=== PATIENT | male | born 1940 | race Caucasian/White ===

== ENCOUNTER 2017-09-14 13:47 | Emergency (ER) | payer OTHER ==
[~2017-09-14] VITALS: Ht 177.8 cm; Wt 136.1 kg
[2017-09-14] MEDS ORDERED: POTASSIUM20 PO (14:06)
[2017-09-14] MEDS ORDERED: SIMVASTATIN40 MG PO (14:06)
[2017-09-14] MEDS ORDERED: COREG25 MG PO (14:06)
[2017-09-14] MEDS ORDERED: ASPIRIN325 PO (14:07)
[2017-09-14] MEDS ORDERED: MOBIC15 MG PO (14:07)
[2017-09-14] MEDS ORDERED: LOSARTAN POTAS100 MG PO (14:07)
[2017-09-14] MEDS ORDERED: FLOMAX0.4 MG PO (14:07)
[2017-09-14] MEDS ORDERED: LASIX 40 MG TAB40 M2 PO (14:08)
[2017-09-14] MEDS ORDERED: PROSCAR 5MG TABL5 M1 PO (14:08)
[2017-09-14] MEDS ORDERED: LIDODERM1 EACH TOP (14:23)
[2017-09-14] MEDS ORDERED: HYDROCODONE-AP1 EAC6 PO (14:23)
[2017-09-14 14:56] VITALS: BP 109/71
== END 2017-09-14 14:57 | disposition home or self-care (01) ==
LOC: M.ERS 13:47
DX: G89.29 Other chronic pain (principal); M54.5 Low back pain; I10 Essential (primary) hypertension; E78.00 Pure hypercholesterolemia, unspecified; Z88.8 Allergy status to other drugs, medicaments and biological substances; Z98.890 Other specified postprocedural states

== ENCOUNTER 2017-12-01 15:38 | Inpatient (IN) | payer OTHER ==
[~2017-12-01] VITALS: Ht 177.8 cm; Wt 134.3 kg
[~2017-12-01 15:38] MED LIST: ASPIRIN325 PO; COREG25 MG PO; FLOMAX0.4 MG PO; HYDROCODONE-AP1 EAC6 PO; LASIX 40 MG TAB40 M2 PO; LIDODERM1 EACH TOP; LOSARTAN POTAS100 MG PO; MOBIC15 MG PO; POTASSIUM20 PO; PROSCAR 5MG TABL5 M1 PO; SIMVASTATIN40 MG PO
[2017-12-01 15:43] VITALS: BP 136/65
[2017-12-01 16:17] LABS: ABSOLUTE EOSINOPHILS 0.3 thou/uL (0.0-0.7); ABSOLUTE LYMPHOCYTES 1.2 thou/uL (0.8-5.3); ABSOLUTE MONOCYTES 0.6 thou/uL (0.0-1.2); ABSOLUTE NEUTROPHILS 5.4 thou/uL (1.6-8.1); BASOPHILS 0.5 %; EOSINOPHILS 3.6 %; HEMOGLOBIN 14.3 gm/dL (14.0-18.0); LYMPHOCYTES 15.8 %; MCV 93.9 fL (80.0-100.0); MONOCYTES 8.1 %; MPV 8.1 fl. (7.2-11.1); NUCLEATED RBCS 0 /100WBC; PLATELET COUNT* 189 thou/uL (150-400); RBC 4.48 mil/uL (4.50-6.00); RDW-CV 13.8 % (10.5-14.5); WBC 7.5 thou/uL (4.0-11.0)
[2017-12-01 16:26] LABS: APTT 26.4 Seconds (25.0-31.3); CALCIUM 9.4 mg/dL (8.5-10.1); CREATININE 1.1 mg/dL (0.6-1.3); INR 1.2; POTASSIUM 3.6 mmol/L (3.5-5.1); PROTIME 11.4 Seconds (9.20-11.50)
[2017-12-01 16:36] LABS: ALBUMIN 3.5 g/dL (3.4-5.0); TOTAL BILIRUBIN 1.2 mg/dL (<0.1-1.0); TOTAL PROTEIN 6.8 g/dL (6.4-8.2); TROPONIN-I LEVEL 0.15 ng/mL (<0.06)
[2017-12-01 18:03] VITALS: BP 146/78
[2017-12-01] MEDS ORDERED: LOSARTAN-HCTZ1 EAC1 PO (18:33)
--- NOTE | 2017-12-01 18:43 | NUR ---
PT ADMITTED TO ICU ROOM 1 AROUND 0 THIS EVENING. VSS. PT TOLERATING DIET AT THIS TIME. FAMILY AT BEDSIDE. PT HAS NO CONCERNS AT THIS TIME. CLWR. WCTM.
[2017-12-01 20:00] VITALS: BP 139/70
[2017-12-01 21:30] VITALS: BP 139/72
[2017-12-01 22:00] VITALS: BP 132/77
[2017-12-01 23:30] VITALS: BP 136/76
[2017-12-02] VITALS (25 sets, daily range): BP systolic 118–178; BP diastolic 57–95
--- NOTE | 2017-12-02 05:09 | NUR ---
PT. SOMEWHAT PROGRESSING TOWARDS GOALS. HAS REMAINED AFIB W/ BRADYCARDIA AND PAUSES. ASYMPTOMATIC. DR. COLE NOTIFIED X2 THIS SHIFT REGARDING HEART RATE DROPPING INTO HIGH 20'S AND FREQUENT PAUSES. NORMOTENSIVE. URINAL TO VOID. DENIES NEEDS AT THIS TIME, CALL LIGHT IN REACH. WILL CONTINUE TO MONITOR.
--- NOTE | 2017-12-02 08:20 | NUR ---
PT SEEN BY CARDIOLOGY NURSE, OKAY FOR SIPS OF WATER. WILL KEEP PT NPO OTHERWISE.DR CRESPO TO [facility] ON PT SHORTLY. FDR KATHRYNFRANCHESKA HAD PHONED ELLIS AND WAS UPDATED ON PT STATUS.PT DENIES ANY COMPLAINTS OF PAIN OR DISCOMFORT AT THIS TOIME. PT REMAINS IN A FIB WITH HEART RATE 40'S-60'S.DAUGHTER ON PHONE EARLIER UPDATED ON PT STATUS AND TRANSFERED CALL TO PT ROOM.
[2017-12-02 10:18] LABS: ANION GAP 8 mmol/L (7-16); BUN 18 mg/dL (7-18); CALCIUM 9.3 mg/dL (8.5-10.1); CHLORIDE 98 mmol/L (98-107); CHOLESTEROL 92 mg/dL (<200); CO2 35 mmol/L (21-32); GLUCOSE 105 mg/dL (70-99); HDL CHOLESTEROL 31 mg/dL (>40); LDL CHOLESTEROL 47 mg/dL (<100); POTASSIUM 3.8 mmol/L (3.5-5.1); SODIUM 141 mmol/L (136-145); TRIGLYCERIDE 72 mg/dL (<150); VLDL 14 mg/dL (<40)
[2017-12-02 10:19] LABS: SERUM ASSESSMENT Clear
--- NOTE | 2017-12-02 11:02 | EKG ---
[place] [address] ELECTROCARDIOGRAM REPORT Name: TOBIASNEW Room: [address] ADM IN .R.#: [id number] Admission: 12/01/17 Attend Phys: Aniyah Silvestre MD Discharge: Date of : 42 Report #: [id number] THIS REPORT FOR: //name// [facility] ED Test Date: 2017-12-01 Test Time: 15:46:08 Pat Name: NEW TOBIAS Department: Room: [facility] Gender: M Surgical Dental Assistant: Manuel AVITIA : 1940 Requested By: Sridhar Kelly Order Number: [id number] MD: Nolan Flores Measurements Intervals [place] Rate: 49 P: [place]: QRS: -70 QRSD: 107 T: 51 QT: 463 QTc: 418 Interpretive Statements Atrial fibrillation Consider right ventricular hypertrophy Inferior infarct, old Consider anterior infarct No previous ECG available for comparison Electronically Signed On 12-02-2017 11:02:07 CDT by Nolan Flores [email or web address] <ELECTRONICALLY SIGNED> By: Nolan Flores MD, [facility] 12/02/17 1102 1546 1546 Nolan Flores MD, [facility] /EPI
--- NOTE | 2017-12-02 11:35 | NUR ---
PT TAKEN TO HEALTH AND WELLNESS COACH FOR PROCEDURE.
--- NOTE | 2017-12-02 12:01 | NUR ---
ICU ROUNDING: CM SPOKE TO THE RN IN-CHARGE OF THE PATIENT AND HE INFORMS THAT THE PATIENT IS CURRENTLY NPO AND WILL GO TO THE HEALTH EDUCATION SPECIALIST TODAY FOR A PROCEDURE. CM WILL REMAIN AVAILABLE TO ASSIST AND FOLLOW NEEDED.
--- NOTE | 2017-12-02 13:53 | 2DMMODE ---
[place] [address] 2 D/M-MODE ECHOCARDIOGRAM Name: NEW TOBIAS Room: [address] IN [facility]#: [id number] Admission: 12/01/17 Attend Phys: Aniyah Silvestre, Discharge: Date of : 42 Date of Service: 12/02/17 1353 Report #: [id number] THIS REPORT FOR: //name// APPROVED REPORT Study performed: 12/02/2017 09:42:50 EXAM: Comprehensive 2D, Doppler, and color-flow Echocardiogram Patient Location: In-Patient Room #: 001 Status: routine BSA: 2.17 HR: 58 bpm BP: 140/74 mmHg Rhythm: NSR Other Information Study Quality: Good Indications Atrial Fibrillation Bradycardia 2D Dimensions LVEF(%): 51.70 (>50%) IVSd: 16.24 (7-11mm) LVOT Diam: 20.21 (18-24mm) LVDd: 47.12 mm PWd: 13.59 (7-11mm) Ascending Ao: 37.47 (22-36mm) LVDs: 34.67 (25-40mm) Aortic Root: 36.67 mm Marcus's LVEF: 51.70 % Volumes Left Atrial Volume (Systole) LA ESV Index: 36.00 mL/m2 Aortic Valve AoV Peak Piyush.: 1.41 m/s AO Peak Gr.: 7.90 mmHg LVOT Max P.43 mmHg AO Mean Gr.: 4.15 mmHg LVOT Mean P.51 mmHg LVOT Max V: 1.17 m/s AO V2 VTI: 26.82 cm LVOT Mean V: 0.71 m/s PRASAD (VTI): 3.32 cm2 LVOT V1 VTI: 27.79 cm AI [place]: 1.91 m/s2 AI PHT: 614.86 [place] [address] 2 D/M-MODE ECHOCARDIOGRAM Name: TOBIASNEW Room: [address] IN [facility]#: [id number] Admission: 12/01/17 Attend Phys: Aniyah Silvestre, Discharge: Date of : 42 Date of Service: 12/02/17 1353 Report #: [id number] Mitral Valve MV Decel. Time: 195.04 ms MV PHT: 56.56 ms MVA (PHT): 3.89 cm2 TDI Medial E' Piyush.: 0.09 m/s Lateral E' Piyush.: 0.11 m/s Pulmonary Valve PV Peak Piyush.: 0.76 m/s PV Peak Gr.: 2.32 mmHg Tricuspid Valve TR Peak Gr.: 33.56 mmHg RVSP: 38.00 mmHg Left Ventricle The left ventricle is normal size. inferior hypokinesis,mild , at the base other segments contract normally Mild to moderate concentric left ventricular hypertrophy. Left ventricular systolic function is normal. The left ventricular ejection fraction is within the normal range. LVEF is 55-60%. This study is not technically sufficient to allow evaluation of the LV diastolic function due to atrial fibrillation. Right Ventricle The right ventricle is normal size. The right ventricular systolic function is normal. Atria Left atrium is mildly dilated. Right atrium is mildly dilated. Aortic Valve The aortic valve is normal in structure. Mild aortic regurgitation. There is no aortic valvular stenosis. Mitral Valve The mitral valve is normal in structure. Mild mitral regurgitation. No evidence of mitral valve stenosis. Tricuspid Valve The tricuspid valve is normal in structure. Mild tricuspid regurgitation. The RVSP is 35-40 [place] [address] 2 D/M-MODE ECHOCARDIOGRAM Name: NEW TOBIAS Room: [address] IN [facility]#: [id number] Admission: 12/01/17 Attend Phys: Aniyah Silvestre, Discharge: Date of : 42 Date of Service: 12/02/17 1353 Report #: [id number] The pulmonary valve is normal in structure. There is no pulmonic valvular regurgitation. Great Vessels The aortic root is normal in size. The inferior vena cava is not well visualized. Pericardium There is no pericardial effusion. <Conclusion> LVEF is 55-60%. inferior hypokinesis,mild , at the base other segments contract normally Left atrium is mildly dilated. Mild aortic regurgitation. There is no aortic valvular stenosis. Mild mitral regurgitation. Right atrium is mildly dilated. <ELECTRONICALLY SIGNED> By: Nolan Flores MD, FACC 12/02/17 1353 1353 1353 Nolan Flores MD, FACC /INF
[2017-12-02 14:59] LABS: BE 3.1 mmol/L (-2 to +3); PO2 86.2 mmHg (75.0-100.0)
[2017-12-02 15:00] LABS: PCO2 77.5 mmHg (35.0-45.0); pH 7.247 (7.340-7.450)
[2017-12-02 18:06] LABS: BE 10.2 mmol/L (-2 to +3); HCO3 37.8 mmol/L (22.0-26.0); pH 7.393 (7.340-7.450)
[2017-12-02 18:07] LABS: PCO2 63.4 mmHg (35.0-45.0)
--- NOTE | 2017-12-02 18:56 | NUR ---
PT DOING WELL. PT REMAINS ON BIPAP. ABG OBTAINED CALLED TO DR ANDERSON. PT VERY DROWSY SUPP3R TRAY HELD. AM SHIFT REPORT GIVEN.
[2017-12-03] VITALS (11 sets, daily range): BP systolic 97–171; BP diastolic 47–93
[2017-12-03 03:44] LABS: HEMOGLOBIN 13.1 gm/dL (14.0-18.0); MCH 31.8 pg (26.0-34.0); MCHC 33.7 g/dL (28.0-37.0); MCV 94.2 fL (80.0-100.0); RBC 4.14 mil/uL (4.50-6.00); RDW-CV 13.8 % (10.5-14.5); WBC 8.3 thou/uL (4.0-11.0)
[2017-12-03 03:55] LABS: CALCIUM 8.7 mg/dL (8.5-10.1); CREATININE 0.9 mg/dL (0.6-1.3); POTASSIUM 3.1 mmol/L (3.5-5.1); TOTAL BILIRUBIN 1.8 mg/dL (<0.1-1.0); TOTAL PROTEIN 5.9 g/dL (6.4-8.2); TROPONIN-I LEVEL 0.55 ng/mL (<0.06)
--- NOTE | 2017-12-03 06:30 | NUR ---
PATIENT PROGRESSING TOWARDS GOAL. HE WAS ABLE TO SLEEP OVERNIGHT. PATIENT REFUSED BIPAP LAST NIGHT STATED "I CAN NOT WEAR THIS ITS BLASTING MY FACE. I WILL NOT WEAR IT" AFTER EDUCATION GIVEN HE AGREED TO WEAR THE BIPAP IF SETTINGS WERE DECREASED. PATIENT TOLERATED BIPAP ALL NIGHT. SETTINGS AT 14/5, FIO2 @30%. PATIENT ATE A BOXED LUNCH BEFORE HE WENT TO BED, TOLERATED WELL. CONTINUES TO HAVE IRREGULAR RHYTHM. HR 45-50. SPOKE WITH KRISTEN (DTR) AND MARCE (GRANDDTR) UPDATED ON PT CURRENT CONDITION. VOICED UNDERSTANDING NO FURTHER CONCERNS AT THIS TIME. CALL LIGHT WITHIN REACH. BED TO LOWEST POSITION. WILL CONTINUE TO MONITOR
--- NOTE | 2017-12-03 10:01 | NUR ---
ASSUMED PT CARE 0730. PT ALERT TO SELF, PLACE AND YEAR. PT FOREGETFUL. VSS. HR IN 30'S - 40'S. [place]ART[place] HELD. NO CHEST PAIN. RIGHT RADIAL SITE CLEAN, DRY, INTACT. PULSE PALPABLE. DRESSING TO RIGHT RADIAL CHANGED. PT SITTING IN CHAIR. PT ATE 85% OF BREAKFAST. WILL CONTINUE PLAN OF CARE.
--- NOTE | 2017-12-03 10:02 | CARD ---
[address] [address] CARDIAC CATH REPORT Name: NEW TOBIAS Room: 001P ADM IN .R.#: [id number] Admission: 12/01/17 Attend Phys: Aniyah Silvestre MD Discharge: Date of : 41 Report #: [id number] THIS REPORT FOR: //name// APPROVED REPORT Study performed: 12/02/2017 11:27:08 Patient Details Patient Status: In-Patient Room #: 001 The patient is a 77 year-old male Event Personnel Nolan Flores Global Lead, Maia Collins RN Monitor, Ning Padilla RN RN, Kinsey Shipman RTR Rachel Pfeiffer John Belt Measurer Procedures Performed [facility] w/wo Plasty Single CIRC Procedure Narrative A Slender Glidesheath sheath was inserted into the Right Radial Artery. Coronary angiography was performed using coronary diagnostic catheters. The right coronary system was accessed and visualized with a Diagnostic DCR: [place] 4.0 5fr catheter. The left coronary system was accessed and visualized with a Diagnostic DCR: [place] 4.0 5fr catheter. The left ventricle was accessed and visualized with a Diagnostic PC: Ang[place] 5fr catheter. Closure device was deployed with a Fr Vasc-Band Lng 27cm. The patient tolerated the procedure well and there were no complications associated with the procedure. Intraoperative Conscious Sedation Sedation start time: 12:07 Case end Time: 13:21 Fentanyl 50 mcg Versed 2 mg Fluoro Time: 14.7 minutes Dose: DAP 125358 cGycm2 3481 mGy Contrast Type and Amount: Omnipaque 275 ml Diagnostic Cath Left Main normal LAD proximal and mid mild <20% diffusely, distal lad moderate 30-50% disease Diagonal 1 large,mid 40% Circumflex prox lcx normal, mid 75% stenosis, large vessel, [place] [address] CARDIAC CATH REPORT Name: NEW TOBIAS Room: [address] IN ..#: [id number] Admission: 12/01/17 Attend Phys: Aniyah Silvestre MD Discharge: Date of : 41 Report #: [id number] co-dominant OM1 large,branching mild proximal 20% L PDA normal Right Coronary proximal to mid 40% R PDA mild disease, mid 20% Left Ventriculography The left ventricle is normal in size with normal contractility. The left ventricular ejection fraction is estimated to be >55%. There is no mitral insufficiency. 1. high grade Left circumflex stenosis 2. unstable angina 3. afib 4. normal LV systolic function Hemodynamics The aortic pressure is mmHg with a mean of 76 mmHg. The left ventricular pressure is 117/15 mmHg with a mean of mmHg. The left ventricular end diastolic pressure is 23 mmHg. PCI Technique Lesion Anticoagulation was achieved with Angiomax. Patient was preloaded with Angiomax IV 22.5 ml. Percutaneous coronary intervention was performed on the distal circumflex artery segment. The lesion stenosis prior to intervention was 75% with ANITA 3 flow. A 6FR XB 3.5 100CM Guide Catheter was used to engage the ostium. A IG: BMW 190cm Interventional Guidewire was used to cross the lesion. STENT DEPLOYMENT A drug-eluting stent Xience Alpine RX 2.5X12 was inserted and inflated up to 10.00atm for 12seconds. Additional Inflation: 14.00atm for 12seconds. Additional Inflation: 15.00atm for 15seconds. Final angiography reveals 0 % stenosis with ANITA 3 flow. Conclusion #1 coronary artery disease characterized by the following: A modest proximal and mid LAD, proximal and mid right coronary narrowings, B 75% mid to distal circumflex narrowing #2 moderate elevation of left ventricular end-diastolic pressure #3 normal left ventricular systolic function estimated ejection fraction greater than 55% [place] [address] CARDIAC CATH REPORT Name: NEW TOBIAS Room: [address]#: [id number] Admission: 12/01/17 Attend Phys: Aniyah Silvestre MD Discharge: Date of : 41 Report #: [id number] #4 successful percutaneous coronary intervention with deployment of a drug-eluting stent at the site of 75% mid to distal circumflex stenosis with 0% residual narrowing following stent deployment and ANITA-3 flow to the distal vessel. Recommendations Cardiac Risk Reduction Program Aggressive Medical Therapy Medications Administered Ticagrelor <ELECTRONICALLY SIGNED> By: Andi Ramos MD, FACC 12/03/17 1002 1002 1002Joshahla Ramos MD, FAC /INF
[2017-12-03 11:41] LABS: CALCIUM 8.9 mg/dL (8.5-10.1); POTASSIUM 3.3 mmol/L (3.5-5.1)
--- NOTE | 2017-12-03 14:36 | EKG ---
[place] [address] ELECTROCARDIOGRAM REPORT Name: TOBIASNEW Room: [address] ADM IN M.R.#: [id number] Admission: 12/01/17 Attend Phys: Aniyah Silvestre MD Discharge: Date of : 41 Report #: [id number] THIS REPORT FOR: //name// [facility] Test Date: 2017-12-02 Test Time: 15:10:30 Pat Name: NEW TOBIAS Department: Room: [address] Gender: M Sales Support Specialist: [facility] : 1940 Requested By: Andi Ramos Order Number: [id number] Alecia MD: Alonso Starr Measurements Intervals [place] Rate: 43 P: 0 [place]: 140 QRS: -64 QRSD: 110 T: 29 QT: 507 QTc: 429 Interpretive Statements Atrial fibrillation with slow ventricular response Inferior infarct, old Anterior infarct, old Compared to ECG 12/01/2017 15:46:08 Myocardial infarct finding still present Electronically Signed On 12-03-2017 14:35:56 CDT by Alonso Starr [email or web address] <ELECTRONICALLY SIGNED> By: Alonso Starr MD, FACC 12/03/17 1435 1510 1510 Alonso Starr MD, [facility] /EPI
--- NOTE | 2017-12-03 14:39 | EKG ---
[place] [address] ELECTROCARDIOGRAM REPORT Name: TOBIASNEW Room: [address] ADM IN M.R.#: [id number] Admission: 12/01/17 Attend Phys: Aniyah Silvestre MD Discharge: Date of : 42 Report #: [id number] THIS REPORT FOR: //name// [facility] Test Date: 2017-12-03 Test Time: 08:36:21 Pat Name: NEW TOBIAS Department: Room: [address] Gender: M Electromedical Equipment Technician: 28 : 1940 Requested By: Andi Ramos Order Number: [id number] Alecia MD: Alonso Starr Measurements Intervals [place] Rate: 39 P: [place]: QRS: -71 QRSD: 106 T: 33 QT: 521 QTc: 420 Interpretive Statements Atrial fibrillation Inferior infarct, old Anterior infarct, old Compared to ECG 12/01/2017 15:46:08 No significant changes Electronically Signed On 12-03-2017 14:39:09 CDT by Alonso Starr [email or web address] <ELECTRONICALLY SIGNED> By: Alonso Starr MD, [facility] 12/03/17 1439 5 5 Alonso Starr MD, FACC /EPI
--- NOTE | 2017-12-03 17:38 | NUR ---
PT TRANSFRED WITH ALL PERSONAL BELONINGS VIA WHEEL CHAIR.
--- NOTE | 2017-12-03 18:12 | NUR ---
PT ARRIVED TO THE FLOOR AT 1730. PT CONTINUES TO BE A&O X4, CALM AND COOPERATIVE. PT WAS ORIENTED TO UNIT AND FOOD AND DRINK OFFERED. PT VSS AND DENIES ANY C/O PAIN OR DISTRESS. PT TRACING A. FIB ON THE MONITOR. NURSING WILL OCNTINUE TO MONITOR.
[2017-12-04 00:30] VITALS: BP 135/77
[2017-12-04 04:13] VITALS: BP 140/78
[2017-12-04 04:37] LABS: HEMATOCRIT 39.5 % (42.0-52.0); HEMOGLOBIN 13.3 gm/dL (14.0-18.0); MCH 31.5 pg (26.0-34.0); MCHC 33.6 g/dL (28.0-37.0); MCV 93.5 fL (80.0-100.0); RBC 4.22 mil/uL (4.50-6.00); RDW-CV 13.7 % (10.5-14.5)
[2017-12-04 05:05] LABS: ALBUMIN 3.4 g/dL (3.4-5.0); CALCIUM 9.3 mg/dL (8.5-10.1); CREATININE 0.9 mg/dL (0.6-1.3); MAGNESIUM 2.2 mg/dL (1.8-2.4)
--- NOTE | 2017-12-04 06:45 | NUR ---
PATIENT HAS BEEN SLEEPING MOST OF NIGHT. CONT. AFIB ON MONITOR. UP WITH ASSIST. UNSTEADY. WORE BIPAP AT NIGHT. NO COMPLAINTS OF PAIN OR DISCOMFORT. WILL CONT. WITH PLAN OF CARE.
[2017-12-04 07:30] VITALS: BP 147/91
[2017-12-04 11:26] VITALS: BP 138/74
[2017-12-04 15:29] VITALS: BP 151/88
[2017-12-04] MEDS ORDERED: PEPCID20 MG PO (15:31)
[2017-12-04] MEDS ORDERED: BRILINTA90 MG PO (15:34)
[2017-12-04 15:35] VITALS: BP 130/76
[2017-12-04] MEDS ORDERED: ELIQUIS5 MG PO (15:35)
[2017-12-04 15:50] LABS: BE 6.2 mmol/L (-2 to +3); PCO2 45.2 mmHg (35.0-45.0); PO2 68.5 mmHg (75.0-100.0); pH 7.454 (7.340-7.450)
--- NOTE | 2017-12-04 17:20 | NUR ---
RECEIVED DISCHARGE ORDERS PER FULBRIGHT. IV DISCONTINUED. DIGITAL CONTENT PRODUCER REMOVED AND RETURNED TO NURSE'S DESK. PULMONARY SPOKE WITH PATIENT ABOUT ABG'S AND BEDSIDE SPIROMETRY TO CHECK IF HE QUALIFIES FOR BIPAP/TRILOGY AT HOME. PATIENT STATED HE WAS GOING TO DO AN OUTPATIENT SLEEP STUDY THIS WEEK FOR THIS AND DID NOT WANT TO STAY IN THE HOSPITAL TO WAIT AND SEE IF HE QUALIFIES. ABGS AND BEDSIDE SPIROMETRY COMPLETED PRIOR TO DC. EDUCATED THE PATIENT AND HIS DAUGHTER ON F/U APPT WITH CARDIOLOGY AND HIS PRIMARY. INSTRUCTED THEM THAT [facility] OUTPATIENT SCHEDULING WOULD CONTACT THEM TOMORROW TO SETUP HIS OUTPATIENT SLEEP STUDY AND TO CONTACT THEM IF NOT. EDUCATED ON HOME MEDICATIONS. NEW SCRIPTS/SAMPLES GIVEN FOR ELIQUIS AND BRVÍCTORTA WITH MED INFORMATION SHEETS. PATIENT'S DAUGHTER IS PLANNING TO GET A PULSE OXIMETRY FOR HOME USE FOR THIS PATIENT AFTER DISCHARGE. BOTH PATIENT AND HIS DAUGHTER DENY ANY QUESTIONS OR CONCERNS AT DISCHARGE. PATIENT IS LEAVING VIA WHEELCHAIR ACCOMPANIED BY NURSING STAFF AND HIS DAUGHTER. ALL BELONGINGS PACKED AND LEAVING WITH PATIENT.
--- NOTE | 2017-12-05 11:40 | CON ---
[address] [address] CONSULTATION Name: TOBIASNEW Room: [address] IN M.R.#: [id number] Admission: 12/01/17 Attend Phys: Aniyah Silvestre MD Discharge: 12/04/17 Date of : 42 Report #: [id number] THIS REPORT FOR: //name// CC: Aniyah Gregory DATE OF SERVICE: 12/03/2017 REQUESTING PHYSICIAN: Dr. Reed. INDICATION FOR CONSULTATION: Acute hypoxemic respiratory failure. HISTORY OF PRESENT ILLNESS: This is a 77-year-old gentleman with past medical history as mentioned below. This does include a history of hypertension as well as obstructive sleep apnea. The patient is not known to be previously on CPAP at home. He only has a remote history of smoking. The patient now presented to the Emergency Room and had seen his primary care physician recently as well. He was found to be in atrial fibrillation. This is new for him with a fairly low rate in only the 30s. The patient was complaining of increasing shortness of breath for the last several days and also was complaining of chest tightness. He was evaluated by the Cardiology service and was suspected of having unstable angina and therefore he did go to the cardiac technical laboratory asst as he also did have some EKG changes. The patient was found to have a circumflex lesion and did have a stent placed. The patient was sedated for cardiac catheterization. He subsequently was difficult to arouse and therefore an arterial blood gas was performed, which did show a low pH and high CO2. I was called with this blood gas yesterday and I recommended that the patient be placed on a BiPAP. The patient subsequently was placed on a BiPAP. He did respond favorably and his pH did return to normal, although his pCO2 remained significantly elevated. Overnight, the patient was on BiPAP. He states that he felt uncomfortable with it, but did keep it on as recommended. This morning, the BiPAP was taken off. The patient, in fact, continued to saturate well on nasal cannula and therefore he is being titrated down to room air. He is saturating in the mid 90s on room air at this time. He reports no significant shortness of breath now at rest. He also does not have any chest pain. The patient in fact states that he has no complaints at this time. The patient, however, does state that he has a history of severe daytime sleepiness. He states that after having all meals, he dozes off unintentionally. He sleeps both on his sides as well as on his back. He does not think that he sleeps bad, but he has profound daytime sleepiness. He does state that he knows that he snores. REVIEW OF SYSTEMS: A 12-point review of systems is performed and is negative [place] [address] CONSULTATION Name: NEW TOBIAS Room: [address] IN ..#: [id number] Admission: 12/01/17 Attend Phys: Aniyah Silvestre MD Discharge: 12/04/17 Date of : 42 Report #: [id number] PAST MEDICAL HISTORY: Hypertension; obstructive sleep apnea, his apnea-hypopnea index was 15 in 2007, I suspect may be much higher now, he does not recall being on CPAP or BiPAP. Morbid obesity, hyperlipidemia, osteoarthritis, there is a remote history of head trauma, osteoarthritis, sciatica, thyroid disease, peptic ulcer disease, bilateral hip surgeries, laminectomy and appendectomy. He has recently had an echocardiogram performed which shows a left ventricular ejection fraction normal at 55%-60% with mild mitral regurgitation. His pulmonary artery systolic pressure is 35-40. He has had coronary artery disease with a circumflex stent placed yesterday as mentioned. SOCIAL HISTORY: He was a smoker long time ago. He says he has discontinued around 40 years ago. Before that, he smoked about a pack a day for more than 20 years. There is no known history of heavy alcohol use or illegal drug use. ALLERGIES: Reported to be ALLERGIC to CECLOR, he has had A RASH with POVIDONE-IODINE. He is also reported to be ALLERGIC to VOLTAREN. FAMILY HISTORY: Heart disease. CURRENT MEDICATIONS: List in [employer], reviewed. HOME MEDICATIONS: List also in [employer], reviewed. PHYSICAL EXAMINATION: GENERAL: He is alert, awake and oriented, does not appear to be in distress at this time. VITAL SIGNS: Pulse of 50 and a blood pressure of 138/71. He is saturating 94%. He is not on supplemental oxygen. His respiratory rate has been between 11 and 15. He is afebrile. HEENT: Head is normocephalic and atraumatic. His body mass index is 42.5. There is no throat erythema. Airway is Mallampati 4. NECK: Does not show raised JVP, asymmetry, mass or lymph nodes. CHEST: Symmetrical expansion on inspection and palpation. On auscultation, chest is clear. HEART: Regular. There is no murmur. ABDOMEN: Soft and nontender. EXTREMITIES: Lower extremities show no edema, no calf tenderness. SKIN: Dry and intact. NEUROLOGICAL: Moves all extremities bilaterally equally and spontaneously with no focal deficit identified. LABORATORY DATA: The patient's arterial blood gas was done twice yesterday, are as described above. I reviewed the patient's hematology, chemistry as well as coagulation studies in [facility] as well. The patient's chest x-ray done earlier, which does show radiopaque densities in the right middle lobe as well as left lower lobe in [facility] and this is reviewed. He [place] [address] CONSULTATION Name: NEW Room: [address]#: [id number] Admission: 12/01/17 Attend Phys: Aniyah Silvestre MD Discharge: 12/04/17 Date of : 42 Report #: [id number] as well. ASSESSMENT AND PLAN: 1. Ccldl-rm-xttvuva hypercarbic respiratory failure with obstructive sleep apnea and obesity hypoventilation syndrome. The patient has previously documented obstructive sleep apnea, suspected may be much worse now. He also does have normalization of the pH on his last arterial blood gas with significant pCO2 elevation still persisting. This is consistent with underlying obesity hypoventilation syndrome. I suspect that there is a significant chronic component to his respiratory failure as well in addition to acute decompensation yesterday. At this time, I recommend that we continue with BiPAP while asleep. Therefore, it appears that he does not need BiPAP while awake or even oxygen while awake at this time. I in fact feel that the patient will benefit from BiPAP while asleep fpc. We will continue to evaluate later this admission. I may consider repeating an arterial blood gas as well as obtaining a bedside spirometry if okay with the Cardiology Service in evaluating as to whether based on these, the patient may qualify for a BiPAP while asleep or Trilogy device. If this is not the case, then I will plan to repeat a sleep study as an outpatient and then subsequently set him up with a BiPAP. Weight loss is strongly recommended. Note that the patient has a previous history of smoking and he may have underlying chronic obstructive pulmonary disease as well. 2. Coronary artery disease with unstable angina. The patient is status post cardiac catheterization with stent placement yesterday. 3. Atrial fibrillation with bradycardia. Would defer to the Cardiology service. 4. Morbid obesity. Strongly recommend weight loss as mentioned above. Thanks for this consultation. <ELECTRONICALLY SIGNED> By: Kusum Lakhani MD 12/05/17 1140 1325 1422Asejal Bonner MD /nt
--- NOTE | 2017-12-05 13:37 | NUR ---
RECEIVED CALL FROM FREDDY/DR TSAI'S OFFICE RE: NEED FOR HH. CALLED AND SPOKE WITH PT AND THEN DTR/KRISTEN. KRISTEN VOICED CONCERN ABOUT HOW PT WAS MANAGING. ENCOURAGED HER TO CALL THE CV OFFICE. IN THE MEAN TIME, DID SET UP [facility] AFTER DISCUSSION/OPTIONS FOR HH TO SEE THANH. FAXED REFERRAL TO [facility]
--- NOTE | 2017-12-16 15:41 | CON ---
[address] [address] CONSULTATION Name: NEW Stanley Room: [address] IN .R.#: [id number] Admission: 12/01/17 Attend Phys: Aniyah Silvestre MD Discharge: 12/04/17 Date of : 42 Report #: [id number] THIS REPORT FOR: //name// CC: Aniyah Gregory DO DATE OF SERVICE: 12/02/2017 REASON FOR CONSULTATION: Abnormal troponin, shortness of breath, bradycardia, and atrial fibrillation. HISTORY OF PRESENT ILLNESS: The patient is a 77-year-old man with a longstanding history of hypertension who presented to the emergency department with increasing shortness of breath and fatigue and was found to be in atrial fibrillation with heart rates in the low 30s. Overnight, his heart rate remained stable with hemodynamics with blood pressures in the 140 systolic. He was without presyncope or dizziness, but had a significant exertional fatigue. He was found to be in new onset atrial fibrillation. He has a longstanding history of hypertension, but no history of dysrhythmia. He is followed by Dr. Gregory. He had been on carvedilol for high blood pressure and had his last dose last night. His cardiac troponin levels became abnormal. His ECG on presentation did not show dynamic ST-T wave abnormalities, but there are Q-waves across the anterior precordial leads. A bedside echocardiogram demonstrated inferior hypokinesis. Historically, the patient has occasional episodes where he will get some chest tightness along with the shortness of breath, which has been progressive over the last 6 months. With any sort of incline, he has to stop and rest. He has chronic right-sided heart failure and has been on Lasix daily. He denies history of kidney failure. He is not known to be a diabetic, but he has other cardiovascular risk factors including age, prior tobacco use, hypertension, and hyperlipidemia. From a neuro standpoint, he denies numbness, weakness or slurred speech. He was placed on Lovenox from the emergency room. SOCIAL HISTORY: He is an oral tobacco user, quit smoking about 30-40 years ago. PAST MEDICAL HISTORY: Hyperlipidemia, high blood pressure, morbid obesity, osteoarthritis, remote history of head trauma, osteoarthritis, sciatica, thyroid disease, remote history [place] [address] CONSULTATION Name: NEW TOBIAS Room: [address]#: [id number] Admission: 12/01/17 Attend Phys: Aniyah Silvestre MD Discharge: 12/04/17 Date of : 42 Report #: [id number] PAST SURGICAL HISTORY: Bilateral hip surgeries, laminectomy and appendectomy. FAMILY HISTORY: Positive for heart disease. ALLERGIES: To CECLOR, POVIDONE IODINE which just cause rashes and VOLTAREN. REVIEW OF SYSTEMS: CARDIOVASCULAR: Positive shortness of breath with exertion. Positive chest discomfort. Positive weakness. Positive lower extremity edema. HEMATOLOGIC: No anemia or bleeding disorders. GASTROINTESTINAL: No abdominal pain, hematemesis, or melena. GENITOURINARY: No dysuria or hematuria. SKIN: No rashes. GENERAL: No fevers or chills. NEUROLOGIC: Denies slurred speech, numbness, weakness, or tingling. RESPIRATORY: Denies history of COPD or asthma. PERIPHERAL VASCULAR DISEASE: Denies any history of claudications or carotid stenosis. HOME MEDICATIONS: Include potassium chloride 20 mEq daily, Lasix 40 mg daily, losartan/HCTZ 100/25 mg daily, aspirin 325 mg daily, Flomax daily, Coreg 25 mg p.o. b.i.d., Zocor 40 mg every evening. PHYSICAL EXAMINATION: VITAL SIGNS: Blood pressure on presentation was in the 130s/60s and his heart rate at the time was in the 50s and overnight his pulse decreased in the low 40s, occasional 30s. His cardiac telemetry did also reveal a 2-1/2-second pause. This morning, his blood pressure is 141/87 and his heart rate was in the 50s for most of my examination with occasional bradycardic spells in the 40s. GENERAL: He is alert, oriented, in no apparent distress. HEENT: Eyes, EOMs intact. There is no facial asymmetry. NECK: Supple. There is no jugular venous distention. CARDIOVASCULAR: Irregular. I cannot hear a murmur. LUNGS: Diminished breath sounds bilaterally. ABDOMEN: Soft, nontender, nondistended. EXTREMITIES: There is 1+ pretibial edema. SKIN: Warm and dry. PSYCHIATRIC: The patient has appropriate mood and affect. His electrocardiogram demonstrates atrial fibrillation with a slow ventricular response. There is nonspecific T-wave abnormality and Q-waves across the anterior precordial leads and there is a mild QRS widening, IVCD. LAB DATA: His cardiac troponin levels were 0.11 and 0.15. Hemoglobin is 14.3, platelet count is 189,000. INR is 1.2. Chest x-ray shows no acute cardiopulmonary process. [address] [address] CONSULTATION Name: NEW TOBIAS [address]: [address] [id number] Admission: 12/01/17 Attend Phys: Aniyah Silvestre MD Discharge: 12/04/17 Date of : 42 Report #: [id number] IMPRESSION: 1. Unstable angina. He has a slight cardiac troponin level and his bedside echocardiogram demonstrated inferior wall defect with what sounds like progressive angina over the last several months. He has numerous cardiovascular risk factors. Based on his unstable presentation with bradycardia, I do think stress testing would be appropriate, I have arranged after discussing with the patient the risks and benefits, a diagnostic cardiac catheterization. 2. Sick sinus syndrome. He has atrial fibrillation with slow ventricular response. He is hemodynamically stable and I suspect that he will stabilize once his carvedilol clears from his system, but we will need to monitor him with continued telemetry data. 3. Atrial fibrillation. He has been given Lovenox based on his higher stroke risk, we will hold this for his cardiovascular procedure. He should be on long-term oral anticoagulation, though based on CHADS-VASc score of 3. This may be somewhat complex if he requires coronary intervention. 4. Congestive heart failure, chronic diastolic. He has some evidence of right heart failure. His overall ejection fraction is normal on surface echocardiogram, though. 5. Hypertension. This is stable. We will hold atrioventricular arnulfo acting agents. <ELECTRONICALLY SIGNED> By: Nolan Flores MD, [facility] 12/16/17 1541 1001 [id number] Rain Flores MD, FACC /nt
== END 2017-12-04 17:27 | disposition home or self-care (01) | DRG 246 ==
LOC: M.ERS 15:38 → M.TBA-ER 17:17 → M.ICU 17:17 → M.2W 12-03 17:39
PROVIDERS: Emergency Medicine Emergency Medical Services; Family Medicine; Internal Medicine; Internal Medicine Cardiovascular Disease; Internal Medicine Critical Care Medicine; ADMIT Internal Medicine
PROC: B2111ZZ Fluoroscopy of Multiple Coronary Arteries using Low Osmolar Contrast (ICD-10-PCS; principal; 2017-12-02)
PROC: 5A09357 Assistance with Respiratory Ventilation, Less than 24 Consecutive Hours, Continuous Positive Airway Pressure (ICD-10-PCS; principal; 2017-12-02)
PROC: 4A023N7 Measurement of Cardiac Sampling and Pressure, Left Heart, Percutaneous Approach (ICD-10-PCS; principal; 2017-12-02)
PROC: B2151ZZ Fluoroscopy of Left Heart using Low Osmolar Contrast (ICD-10-PCS; principal; 2017-12-02)
PROC: 027034Z Dilation of Coronary Artery, One Artery with Drug-eluting Intraluminal Device, Percutaneous Approach (ICD-10-PCS; principal; 2017-12-02)
PROC: 5A09357 Assistance with Respiratory Ventilation, Less than 24 Consecutive Hours, Continuous Positive Airway Pressure (ICD-10-PCS; 2017-12-03)
PROC: 5A09357 Assistance with Respiratory Ventilation, Less than 24 Consecutive Hours, Continuous Positive Airway Pressure (ICD-10-PCS; 2017-12-04)
DX: I25.110 Atherosclerotic heart disease of native coronary artery with unstable angina pectoris (principal); J96.22 Acute and chronic respiratory failure with hypercapnia; J96.21 Acute and chronic respiratory failure with hypoxia; I50.32 Chronic diastolic (congestive) heart failure; E66.2 Morbid (severe) obesity with alveolar hypoventilation; Z68.41 Body mass index [BMI] 40.0-44.9, adult; E78.5 Hyperlipidemia, unspecified; M19.90 Unspecified osteoarthritis, unspecified site; I48.91 Unspecified atrial fibrillation; I49.5 Sick sinus syndrome; I11.0 Hypertensive heart disease with heart failure; E78.00 Pure hypercholesterolemia, unspecified; Z79.82 Long term (current) use of aspirin; Z79.899 Other long term (current) drug therapy; Z88.8 Allergy status to other drugs, medicaments and biological substances; Z91.041 Radiographic dye allergy status; Z87.891 Personal history of nicotine dependence; Z87.11 Personal history of peptic ulcer disease; Z90.49 Acquired absence of other specified parts of digestive tract; Z71.3 Dietary counseling and surveillance

== ENCOUNTER 2017-12-05 16:32 | Inpatient (IN) | payer OTHER ==
[~2017-12-05] VITALS: Ht 177.8 cm; Wt 127.0 kg
[~2017-12-05 16:32] MED LIST changes: +BRILINTA90 MG PO; +ELIQUIS5 MG PO; +LOSARTAN-HCTZ1 EAC1 PO; +PEPCID20 MG PO
[2017-12-05 16:38] VITALS: BP 178/97
--- NOTE | 2017-12-05 16:50 | NUR ---
PT PLACED ON ROOM AIR BY DR. CARTER TO CHECK ROOM AIR O2 SAT.
[2017-12-05 17:08] LABS: HEMATOCRIT 41.2 % (42.0-52.0); HEMOGLOBIN 14.1 gm/dL (14.0-18.0); MCHC 34.2 g/dL (28.0-37.0); MCV 93.6 fL (80.0-100.0); MPV 7.9 fl. (7.2-11.1); NUCLEATED RBCS 0 /100WBC; PLATELET COUNT* 179 thou/uL (150-400); RDW-CV 13.8 % (10.5-14.5); WBC 10.1 thou/uL (4.0-11.0)
--- NOTE | 2017-12-05 17:14 | NUR ---
O2 2L NC REAPPLIED DUE TO O2 SAT 90-92% ON ROOM AIR W/ C/O SOB.
[2017-12-05 17:18] LABS: CALCIUM 9.6 mg/dL (8.5-10.1); POTASSIUM 3.3 mmol/L (3.5-5.1)
[2017-12-05 17:20] LABS: URINE BILIRUBIN NEGATIVE (Negative); URINE BLOOD 1+ (Negative); URINE CLARITY CLEAR; URINE COLOR YELLOW; URINE GLUCOSE-RANDOM NEGATIVE (Negative); URINE KETONES NEGATIVE (Negative); URINE LEUKOCYTES-REFLEX NEGATIVE (Negative); URINE NITRITE-REFLEX NEGATIVE (Negative); URINE PROTEIN NEGATIVE (Negative); URINE UROBILINOGEN 0.2 E.U./dl (0.2-1.0)
[2017-12-05 17:23] LABS: APTT 32.3 Seconds (25.0-31.3); INR 1.2; PROTIME 12.1 Seconds (9.20-11.50)
[2017-12-05 17:28] LABS: ALBUMIN 3.6 g/dL (3.4-5.0); TOTAL BILIRUBIN 2.7 mg/dL (<0.1-1.0); TOTAL PROTEIN 7.3 g/dL (6.4-8.2); TROPONIN-I LEVEL 0.28 ng/mL (<0.06)
[2017-12-05 17:29] LABS: BACTERIA-REFLEX None Seen /HPF (None Seen); CASTS None Seen /LPF (None Seen); CRYSTALS None Seen /LPF (None Seen); MUCUS None Seen strn/LPF (None Seen); SQUAMOUS NONE SEEN /LPF (0-3); URINE RBC 0-2 Rare /HPF (0-2); URINE WBC-REFLEX None Seen /HPF (0-5)
[2017-12-05 17:54] LABS: ABSOLUTE EOSINOPHILS 0.1 thou/uL (0.0-0.7); ABSOLUTE LYMPHOCYTES 0.5 thou/uL (0.8-5.3); ABSOLUTE NEUTROPHILS 8.5 thou/uL (1.6-8.1)
[2017-12-05 17:57] LABS: HYPOCHROMASIA Occasional; PLATELET ESTIMATE ADEQUATE
[2017-12-05 19:45] VITALS: BP 166/89
[2017-12-05 23:37] VITALS: BP 141/64
--- NOTE | 2017-12-06 01:21 | NUR ---
PATIENT ADMITTED TO THE FLOOR RIGHT AT SHIFT CHANGE. DAUGHTER ACCOMPANIED. RESIDENT MD IN ROOM TO SEE PATIENT WITH DTR PRESENT. MEDS STARTED ORDERED. RES. MD EXPRESSED THAT BIPAP COULD BE USED AT NIGHT IF NEEDED. RESP THERAPY RECEIVED THAT ORDER AND DID NOT PLACE ON BIPAP AT THIS TIME. PATIENT DENIES SOA, CASEMGMT TO CONSULT FOR NEED OF O2 AT HOME. DENIES COMPLAINTS OF PAIN OR DISCOMFORT. NO SIGN OF DISTRESS. WILL CONT. WITH PLAN OF CARE INITIATED AT ADMISSION. BED IN LOW POSITION, CALL LIGHT IN REACH, BED ALRM ON.
[2017-12-06 04:00] VITALS: BP 150/81
[2017-12-06 06:32] LABS: CALCIUM 9.8 mg/dL (8.5-10.1); CREATININE 1.1 mg/dL (0.6-1.3)
[2017-12-06 08:05] VITALS: BP 152/87
[2017-12-06 11:46] VITALS: BP 127/79
--- NOTE | 2017-12-06 11:47 | NUR ---
CM SPOKE TO THE PATIENT TO DISCUSS HOME SITUATION, DISCHAGRE PLANNING, AND TO INFORM OF THE ROLE OF CM. PATIENT ALERT, ORIENTED, AND INDEPENDENT WITH ADL'S. PATIENT DRIVES. PATIENT RESIDES AT HOME WITH . 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 PATIENT'S DTR HAS BEEN STAYING WITH THE PATIENT IN HIS HOME SINCE HIS LAST ADMISSION. PATIENT OWNS A WALKER AND A CANE AND USES ONE OR THE OTHER INTERMITTENTLY. PATIENT HAS A HX OF HH AFTER HIP SX, BUT COULD NOT RECALL THE NAME. PATIENT HAS NO HX OF SNF. PATIENT PLANS TO RETURN HOME AT D/C, AND STATES THAT HIS ONLY CONCERN IS WITH GETTING OXYGEN SETUP BEFORE HE RETURNS HOME. PATIENTS DTR AT THE BEDSIDE AND STATES THAT SHE WOULD LIKE TO SPEAK TO SOMEONE REGUARDING THE PATIENTS PREVIOUS DISCHARGE. CM CONTACTED PATIENT EXPERIENCE COORDINATOR AND LEFT A MESSAGE TO INFORM OF THIS. CM WILL REMAIN AVIALABLE TO ASSIST AND FOLLOW NEEDED.
--- NOTE | 2017-12-06 14:48 | EKG ---
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: MONIKA Jackson : 1940 Requested By: Sridhar Kelly Order Number: [id number] MD: Damaso Ho Measurements Intervals [place] Rate: 63 P: NM: QRS: -70 QRSD: 97 T: 40 QT: 445 QTc: 456 Interpretive Statements Atrial fibrillation Inferior infarct, old Anterior infarct, old Compared to ECG 12/03/2017 08:36:21 rate increased Electronically Signed On 12-06-2017 14:47:52 CDT by Damaso Ho [email or web address] <ELECTRONICALLY SIGNED> By: Damaso Ho MD, [facility] 12/06/17 1447 1643 42 Damaso Ho MD, [facility] /EPI
[2017-12-06 16:12] VITALS: BP 137/80
--- NOTE | 2017-12-06 17:30 | NUR ---
ASSUMED CARE OF PT AT 0730. PT CONTINUES TO BE A&O X4 AND FORGETFUL AT TIMES. HE IS IONE AND THIS NURSE HAS TO RAISE HIS VOICE FOR THE PT TO BE ABLE TO UNDERSTAND WHAT I AM SAYING. PT HAD SOME C/O GENERALIZED PAIN THIS MORNING BUT THEY WERE EFFECTIVELY REDUCED TO A TOLERABLE LEVEL WITH PRN PAIN MEDICATIONS. PT HAS HAD NO MORE C/O PAIN THIS AFTERNOON. PT VSS AND HE HAS BEEN TRACING A. FIB. ON THE MONITOR. THIS NURSE TRIED TO WEENE THE PT OFF SUPPLEMENTAL O2 TODAY AND HE DID FINE WITH SATS REMAINING IN THE MID 90'S WHILE AWAKE. WHEN PT STARTS TO FALL ASLEEP HIS O2 SATS WOULD BEGIN TO DROP TO THE MID 80'S. PT PLACED BACK ON 2L VIA NC. PT WILL HAVE CONTINUOUS PULSE OX THROUGH THE NIGHT TONIGHT. PT CURRENLTY RESTING IN BED VISITING WITH FAMILY. NURSING WILL CONTINUE TO MONITOR.
--- NOTE | 2017-12-06 23:59 | NUR ---
ALERT AND ORIENTED X 4, FORGETFUL AT TIMES. UP TO BSC WITH SBA. PATIENT IS HAVING SLEEP STUDY TONIGHT WITH CONT. PULSE OX ON. RESP IS MONITORING CLOSELY. PATIENT WITHOUT CONCERNS OR COMPLAINTS WITHOUT O2. NO SIGN OF DISTRESS AT THIS TIME.
--- NOTE | 2017-12-07 03:35 | NUR ---
PATIENT SET BED ALARM OFF. ENTERED ROOM, SITTING ON EDGE OF BED. SATS RIGHT AT 90 PERCENT BUT SEEMED MORE CONFUSED. THE EFFORT OF GETTING SITUATED IN BED CAUSED SATURATION TO DROP TO 86. RESP NOTIFIED. ENCOURAGED EXCERCISE DESATURATION STUDY WITH PHYSICAL THERAPY.
[2017-12-07 04:00] VITALS: BP 151/95
[2017-12-07 04:57] LABS: HEMATOCRIT 41.4 % (42.0-52.0); HEMOGLOBIN 14.2 gm/dL (14.0-18.0); MCH 31.6 pg (26.0-34.0); MCHC 34.3 g/dL (28.0-37.0); MCV 92.1 fL (80.0-100.0); MPV 8.1 fl. (7.2-11.1); RBC 4.5 mil/uL (4.50-6.00); RDW-CV 13.8 % (10.5-14.5); WBC 8.7 thou/uL (4.0-11.0)
[2017-12-07 05:35] LABS: ALBUMIN 3.3 g/dL (3.4-5.0); CALCIUM 9.4 mg/dL (8.5-10.1); TOTAL BILIRUBIN 2.2 mg/dL (<0.1-1.0); TOTAL PROTEIN 6.1 g/dL (6.4-8.2); TROPONIN-I LEVEL 0.23 ng/mL (<0.06)
[2017-12-07 05:42] LABS: POTASSIUM 2.8 mmol/L (3.5-5.1)
[2017-12-07 08:10] VITALS: BP 142/78
--- NOTE | 2017-12-07 10:33 | CON ---
[address] [address] CONSULTATION Name: NEW TOBIAS Room: [address] IN .R.#: [id number] Admission: 12/05/17 Attend Phys: Francine Vega Discharge: Date of : 42 Report #: [id number] THIS REPORT FOR: //name// CC: Braxton Johnson REASON FOR CONSULTATION: Hypoxia. HISTORY OF PRESENT ILLNESS: The patient is a 77-year-old male patient who was admitted to this facility on 12/05/2017. Reviewing his record indicated that he was discharged on 12/04/2017 from the hospital after he stayed for coronary artery disease where he had a stent placement in the circumflex artery. During the hospitalization, he was in respiratory failure, hypercapnic, after the procedure, was felt to be related to medication. He required BiPAP overnight at that time. He was discharged home on no oxygen, and apparently, per the family, his O2 saturation was low at home, especially at night, and they brought him back to the hospital. He was found to have a high BNP, and he was started on diuresis. His chest x-ray will be discussed below. During the last hospitalization, our group saw the patient. He has a history of smoking in the past, and his CO2 was elevated during the previous hospitalization following the procedure, but he was titrated to room air. He had a previous sleep study in the past that demonstrated apnea-hypopnea index in the moderate range, but apparently he never acquired the CPAP or BiPAP machine. He has history of daytime sleepiness, fatigue. He tells me he dozes off sometimes unintentionally after sleep. He has history of snoring and interrupted sleep. REVIEW OF SYSTEMS: Twelve system review of the patient was negative other than as mentioned above. PAST MEDICAL HISTORY: Obstructive sleep apnea and hypertension. His last sleep study in 2007 showed moderate sleep apnea with apnea-hypopnea index of 15. He has history of osteoarthritis, hyperlipidemia, morbid obesity. He has history of peptic ulcer disease. He had remote history of head trauma, bilateral hip surgery, laminectomy and appendectomy. His last echocardiogram, ejection fraction was 60% and pulmonary artery pressure 35-40 mmHg. SOCIAL HISTORY: He is an ex-smoker. He smoked for almost 20 years. He does not drink alcohol excessively, does not abuse drugs. ALLERGIES: CECLOR AND IODINE, VOLTAREN. FAMILY HISTORY: Positive for heart disease. HOME MEDICATIONS: Reviewed per the [facility]. PHYSICAL EXAMINATION: GENERAL: He is sitting in bed on 2 L oxygen. Awake, alert, [place] [address] CONSULTATION Name: NEW TOBIAS Room: [address] IN [facility]#: [id number] Admission: 12/05/17 Attend Phys: Francine Vega Discharge: Date of : 42 Report #: [id number] answered questions properly. HEAD: Normocephalic, atraumatic. EYES: Pupils equal, reactive to light. ENT: ORAL CAVITY: Moist mucous membrane. Mallampati of 4. NECK: Supple. No lymphadenopathy. Trachea central. No increased jugular venous pressure. CHEST: Diminished air movement bilaterally, prolonged expiratory phase. No definite wheezes. Symmetrical expansion. HEART: S1, S2, no murmur. ABDOMEN: Soft, lax, nontender, positive bowel sounds. EXTREMITIES: Lower extremity, trace edema, no calf tenderness. SKIN: Normal for age and race, no rash. NEUROLOGIC: Moving 4 extremities spontaneously. No focal weakness. Cranial nerves grossly normal. VITAL SIGNS: Reviewed. The last set of vital signs: Temperature 37, pulse rate of 72, breathing 18 times a minute, blood pressure 150/87. LABORATORY DATA: His chest x-ray upon hospitalization did not show acute process. His BNP was elevated. His creatinine is 1.1, BUN of 12. Carbon dioxide of 36, potassium of 4. His white blood count 10.1, hemoglobin 14.1, platelet of 179. INR of 1.2. IMPRESSION: 1. Acute hypoxemic respiratory failure. 2. Possible chronic obstructive pulmonary disease with history of smoking and history of wheezing. 3. Hypersomnia with known obstructive sleep apnea. 4. Possible fluid overload with elevated BNP. 5. Coronary artery disease, status post stent. 6. Atrial fibrillation, on anticoagulation. The likely chance that the patient has thromboembolic phenomena is low given the fact that he is on anticoagulation at the time of presentation, suspect his hypoxia is multifactorial. He has history of smoking. He has history of sleep apnea, not treated. He has history of coronary artery disease with elevated BNP. I agree with the diuresis. I am going to give him 3 doses of steroids, continue scheduled nebulization treatments. We will try to wean his oxygen off if we are able to take him off oxygen. We will do overnight oximetry, somebody who smoked for 20+ years like he had an element of COPD. He will benefit from outpatient PFTs. He tells me that his sleep study scheduled for next week. Thank you for the consult. We will follow along with you. <ELECTRONICALLY SIGNED> By: Kusum Lakhani MD 12/07/17 1033 1101 [id number] MD Lesvia /junaid
[2017-12-07 11:57] VITALS: BP 128/74
[2017-12-07 16:00] VITALS: BP 121/92
--- NOTE | 2017-12-07 16:26 | NUR ---
CM was able to arrange a trilogy for Pt, Teeia to bring and set up today. Pt qualifies for home o2, concentrator to be delivered at dc. Anticipate Pt will be ready to dc tomorrow. Following.
--- NOTE | 2017-12-07 18:25 | NUR ---
ASSUMED CARE OF PT AT 0715. PT CONTINUES TO BE A&O X4 BUT FORGETFUL AT TIMES. PT UP WITH SBA, GAIT BELT AND WALKER. PT AMBULATED IN THE RIVERO TODAY WITHOUT SUPPLEMENTAL OXYGEN AND MAINTAINED O2 SATS GREATER THAN 90% WITH AMBULATION. PT HAS BEEN UP TO THE CAHIR AT BEDSIDE FOR SEVRAL HOURS TODAY. PT HAS BEEN TRACING A FIB ON THE MONITOR AND VSS. PT APPETITE IS GOOD AND HE HAS AT GREATER THAN 90% OF ALL MEALS. PT AMBULATING TO THE BATHROOM TO VOID CLEAR YELLOW URINE. PT CURRENTLY RESING IN CHAIR AT BEDSIDE WATCHING TV. MURSING WILL CONTINUE TO MONITOR.
[2017-12-07 20:00] VITALS: BP 146/86; BP 147/62
[2017-12-08] VITALS: BP 117/70
[2017-12-08 03:53] VITALS: BP 130/77
--- NOTE | 2017-12-08 03:54 | NUR ---
ALERT AND ORIENTED X 4, HAS REMOVED THE CPAP AND TURNED OFF A COUPLE OF TIMES. PATIENT UP TO BATHROOM WITH SBA USING A ROLLING WALKER. NO COMPLAINTS OF PAIN OR DISCOMFORT. NO SIGN OF DISTRESS. BED IN LOW POSITION, CALL LIGHT IN REACH BED ALRM ON. DOES NOT USE CALL LIGHT ALARM SOUNDED A COUPLE OF TIMES TONIGHT. WILL PROCEED WITH PLAN OF CARE AT THIS TIME.
[2017-12-08 05:35] LABS: HEMATOCRIT 44.5 % (42.0-52.0); HEMOGLOBIN 15.1 gm/dL (14.0-18.0); MCH 31.7 pg (26.0-34.0); MCV 93.4 fL (80.0-100.0); MPV 8.2 fl. (7.2-11.1); RBC 4.76 mil/uL (4.50-6.00); RDW-CV 13.9 % (10.5-14.5); WBC 10.9 thou/uL (4.0-11.0)
[2017-12-08 05:50] LABS: ALBUMIN 3.5 g/dL (3.4-5.0); CREATININE 1.1 mg/dL (0.6-1.3); POTASSIUM 3.4 mmol/L (3.5-5.1); TOTAL BILIRUBIN 1.6 mg/dL (<0.1-1.0); TOTAL PROTEIN 7.5 g/dL (6.4-8.2); TROPONIN-I LEVEL 0.17 ng/mL (<0.06)
[2017-12-08 07:59] VITALS: BP 147/88
--- NOTE | 2017-12-08 10:37 | NUR ---
Pt to dc home today, resumption orders faxed to [facility]. Dtr in room. Concentrator to be delievered to Pt's home today after dc. Trilogy in room, Pt slept with last night. Family to provide dc transportation.
[2017-12-08] MEDS ORDERED: PREDNISONE 10 M10 MG PO (10:55)
[2017-12-08 12:37] VITALS: BP 112/71
--- NOTE | 2017-12-08 14:21 | NUR ---
PT DISCHARGED HOME WITH HOME HEALTH SERVICES. PT AND FAMILY VERBALIZED UNDERSTANDING OF DC INSTRUCTIONS THAT INCLUDED MEDICATION TEACHING. IV AND METAL MOVER REMOVED PRIOR TO DISCHARGE. PT TOOK ALL PERSONAL BELONGINGS AND ALL PRESCRIPTIONS AT TIME OF DISCHARGE. PT VSS AND NO C/O PAIN OR DISTRESS, SKIN WARM, DRY AND INTACT.
--- NOTE | 2017-12-08 18:16 | CON ---
[address] [address] CONSULTATION Name: NEW TOBIAS Room: [address] IN ..#: [id number] Admission: 12/05/17 Attend Phys: Francine Vega Discharge: 12/08/17 Date of : 42 Report #: [id number] THIS REPORT FOR: //name// CC: Dr. Mark Bergman DATE OF SERVICE: 12/06/2017 INDICATION: Acute hypoxic respiratory failure. HISTORY OF PRESENT ILLNESS: The patient is a 77-year-old gentleman who was just hospitalized last week with elevated troponin, shortness of breath, bradycardia and atrial fibrillation. By catheterization, he was found to have a high-grade mid circumflex stenosis for which he underwent intervention. He was placed on Eliquis for his atrial fibrillation and Brilinta for his recent percutaneous coronary intervention. He was not placed on aspirin in addition, as this would increase his bleeding risk. He was discharged uneventfully. He had hypoxia during hospitalization. He has a history of untreated obstructive sleep apnea. After returning home on 12/04/2017, he had a night of significant hypoxia and restlessness. He returned to the hospital the following day and was admitted with acute respiratory failure. Respiratory failure was multifactorial. He has improved on supplemental oxygen. He was given IV Lasix with prompt diuresis. Chest x-ray showed no evidence of pulmonary vascular congestion; however, his NT-proBNP was mildly elevated. He denies chest pain throughout this. He is without other cardiac complaint. PAST MEDICAL HISTORY: 1. Coronary artery disease, status post percutaneous coronary intervention to the mid circumflex last week. 2. Diastolic heart failure with preserved left ventricular systolic function. 3. Obstructive sleep apnea. 4. Hypertension. 5. Hyperlipidemia. 6. Morbid obesity. 7. Osteoarthritis. 8. Peptic ulcer disease. 9. Bilateral hip surgery. 10. Laminectomy. 11. Appendectomy remotely. Echocardiogram during last hospitalization showed ejection fraction 60% and a pulmonary artery pressure of 35-40 mmHg. SOCIAL HISTORY: The patient quit smoking remotely. He had a [id number] [address] CONSULTATION Name: NEW TOBIAS Room: [address]#: [id number] Admission: 12/05/17 Attend Phys: Francine Vega Discharge: 12/08/17 Date of : 42 Report #: [id number] smoking history. He does not drink alcohol. FAMILY HISTORY: Positive for heart disease. ALLERGIES: CECLOR, IODINE AND VOLTAREN. HOME MEDICATIONS: Eliquis 5 mg p.o. b.i.d., Pepcid 20 mg p.o. b.i.d., Proscar 5 mg daily, furosemide 40 mg p.o. daily, losartan/hydrochlorothiazide 100/25 one tablet daily, meloxicam 15 mg daily, potassium chloride 20 mEq daily, simvastatin 40 mg at bedtime, Flomax 0.4 mg daily, Brilinta 90 mg b.i.d. REVIEW OF SYSTEMS: A 14-point review of systems is positive for generalized weakness without focal paralysis. He reports cough that is nonproductive. He has shortness of breath and orthopnea and paroxysmal nocturnal dyspnea. No history of diabetes, thyroid disease. He has medical allergies outlined above. He has arthritis without connective tissue disease. A 14-point review of systems is otherwise unremarkable. PHYSICAL EXAMINATION: VITAL SIGNS: Stable. Blood pressure 137/80, pulse 78 and regular. GENERAL: This is a morbidly obese, pleasant white male in no distress. Mood and affect appropriate. HEENT: Extraocular muscles intact. O2 nasal cannula in place. Mucous membranes are moist. NECK: Shows no jugular venous distention. CHEST: Reveals clear lung lopez without wheezes or rales. CARDIOVASCULAR: Reveals a regular rhythm, normal S1 and S2. I do not appreciate gallop or murmur. ABDOMEN: Reveals an obese, protuberant abdomen with positive bowel sounds. The abdomen is soft, nontender. EXTREMITIES: Shows no edema. SKIN: Warm and dry. Peripheral pulses palpable. LABORATORY DATA: A 12-lead EKG shows sinus rhythm without acute ST or T-wave abnormality. Labs are reviewed. NT-proBNP elevated at approximately 3000. Chest x-ray shows clear lung lopez. IMPRESSION AND RECOMMENDATIONS: 1. Acute respiratory failure, likely multifactorial including chronic obstructive pulmonary disease, obstructive sleep apnea and diastolic heart failure, symptoms improving. Oximetry scheduled. He has an outpatient sleep study scheduled in the near future. Continue supplemental oxygen at this time. 2. Acute on chronic diastolic heart failure[place] [address] CONSULTATION Name: NEW TOBIAS Stanley Room: [address] IN M.R.#: [id number] Admission: 12/05/17 Attend Phys: Francine Vega Discharge: 12/08/17 Date of : 42 Report #: [id number] adequately. Continue IV Lasix. 3. Coronary artery disease, presently stable. Continue Eliquis and Brilinta. He is not on aspirin as this would increase his bleeding risk. 4. Hyperlipidemia. Continue Zocor at current dose. 5. Hypertension. Blood pressure adequately controlled on current cardiac regimen. <ELECTRONICALLY SIGNED> By: Alonso Starr MD, FACC 12/08/17 1816 1801 [id number] Starr MD, FACC /nt
== END 2017-12-08 14:29 | disposition home health service (06) | DRG 291 ==
LOC: M.ERS 16:32 → M.TBA-ER 17:57 → M.2W 17:57
PROVIDERS: Emergency Medicine Emergency Medical Services; ADMIT Internal Medicine
DX: I11.0 Hypertensive heart disease with heart failure (principal); J96.21 Acute and chronic respiratory failure with hypoxia; Z68.41 Body mass index [BMI] 40.0-44.9, adult; I50.33 Acute on chronic diastolic (congestive) heart failure; G47.33 Obstructive sleep apnea (adult) (pediatric); M19.90 Unspecified osteoarthritis, unspecified site; E78.5 Hyperlipidemia, unspecified; E66.01 Morbid (severe) obesity due to excess calories; I25.10 Atherosclerotic heart disease of native coronary artery without angina pectoris; G47.10 Hypersomnia, unspecified; I48.91 Unspecified atrial fibrillation; N40.0 Benign prostatic hyperplasia without lower urinary tract symptoms; J44.9 Chronic obstructive pulmonary disease, unspecified; E87.6 Hypokalemia; Z79.899 Other long term (current) drug therapy; Z87.891 Personal history of nicotine dependence; Z91.041 Radiographic dye allergy status; Z82.49 Family history of ischemic heart disease and other diseases of the circulatory system; Z87.11 Personal history of peptic ulcer disease; Z90.49 Acquired absence of other specified parts of digestive tract; Z88.8 Allergy status to other drugs, medicaments and biological substances; Z95.5 Presence of coronary angioplasty implant and graft; Z79.01 Long term (current) use of anticoagulants

== ENCOUNTER → 2018-02-01 | Outpatient (CLI) | payer OTHER ==
[~2018-02-01] MED LIST changes: +PREDNISONE 10 M10 MG PO
[2018-02-01 10:03] LABS: CALCIUM 9.2 mg/dL (8.5-10.1); POTASSIUM 3.5 mmol/L (3.5-5.1)
== END ==
LOC: M.LAB 09:30
PROVIDERS: Internal Medicine Cardiovascular Disease
DX: R42 Dizziness and giddiness (principal)

== ENCOUNTER 2019-02-08 11:08 | Inpatient (IN) | payer OTHER ==
[~2019-02-08] VITALS: Ht 175.3 cm; Wt 129.3 kg
[2019-02-08 11:12] VITALS: BP 149/90
[2019-02-08 11:32] LABS: ABSOLUTE BASOPHILS 0.1 thou/uL (0.0-0.2); ABSOLUTE EOSINOPHILS 0.2 thou/uL (0.0-0.7); ABSOLUTE LYMPHOCYTES 0.8 thou/uL (0.8-5.3); ABSOLUTE MONOCYTES 0.6 thou/uL (0.0-1.2); ABSOLUTE NEUTROPHILS 5.7 thou/uL (1.6-8.1); BASOPHILS 0.9 %; EOSINOPHILS 2.6 %; HEMATOCRIT 39.4 % (42.0-52.0); HEMOGLOBIN 13.1 gm/dL (14.0-18.0); LYMPHOCYTES 11.1 %; MCH 30.1 pg (26.0-34.0); MCHC 33.3 g/dL (28.0-37.0); MCV 90.4 fL (80.0-100.0); MONOCYTES 7.9 %; MPV 8.2 fl. (7.2-11.1); NUCLEATED RBCS 0 /100WBC; PLATELET COUNT* 202 thou/uL (150-400); POLYS 77.5 %; RBC 4.36 mil/uL (4.50-6.00); RDW-CV 14.8 % (10.5-14.5); WBC 7.4 thou/uL (4.0-11.0)
[2019-02-08 11:41] LABS: APTT 30.3 Seconds (25.0-31.3); INR 1.2; PROTIME 12.5 Seconds (9.20-11.50)
[2019-02-08 11:46] LABS: CALCIUM 9.3 mg/dL (8.5-10.1); CREATININE 1.1 mg/dL (0.6-1.3); POTASSIUM 3.5 mmol/L (3.5-5.1)
[2019-02-08 12:04] LABS: ALBUMIN 3.5 g/dL (3.4-5.0); MAGNESIUM 1.8 mg/dL (1.8-2.4); TOTAL BILIRUBIN 1.3 mg/dL (<0.1-1.0); TOTAL PROTEIN 7.1 g/dL (6.4-8.2); TROPONIN-I LEVEL 0.11 ng/mL (<0.06)
[2019-02-08 14:00] VITALS: BP 157/85
[2019-02-08 14:10] VITALS: BP 149/73
[2019-02-08] MEDS ORDERED: SINGULAIR 10 MG10 M1 PO (14:36)
--- NOTE | 2019-02-08 15:37 | EKG ---
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 BETANCOURT : 1940 Requested By: Lazarus Harper Order Number: [id number] MD: Damaso Ho Measurements Intervals [place] Rate: 32 P: WI: QRS: -53 QRSD: 98 T: 18 QT: 489 QTc: 357 Interpretive Statements Atrial fibrillation Inferior infarct, old Anterior infarct, old Baseline wander in lead(s) V2 Compared to ECG 12/05/2017 16:43:05 rate slowed Electronically Signed On 02-08-2019 15:36:55 CDT by Damaso Ho [email or web address] <ELECTRONICALLY SIGNED> By: Damaso Ho MD, [facility] 02/08/19 1536 1117 1117 Damaso Ho MD, [facility] /EPI
[2019-02-08 16:14] VITALS: BP 119/79
[2019-02-08] MEDS ORDERED: HOME RESPIRATORY TX INH (16:33)
--- NOTE | 2019-02-08 18:15 | NUR ---
PT ADMITTED THIS AFTERNOON FROM ER. REPORT RECEIVED FROM NURSE. 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 ON RA. NO COMPLAINT. LEGS ARE SWOLLEN PITTING EDEMA +3. PT IS UP STAND BY USES HIS CANE. SAYS HE WEARS A TRILOGY AT HOME. TRILOGY NOT BROUGHT TO HOSPITAL,ORDER FOR BIPAP GIVEN. THIS WAS COMMUNICATED TO RT. IV LINE PATENT. ADM HX AND ASSESSMENT PERFORMED SEE CHART. PT MADE COMFORTABLE. CALL LIGHT AT REACH.
[2019-02-08 20:00] VITALS: BP 134/71
[2019-02-09] VITALS: BP 123/68
[2019-02-09 04:00] VITALS: BP 143/68
[2019-02-09] MEDS ORDERED: COREG25 MG PO ×2 (04:39)
[2019-02-09] MEDS ORDERED: ZOCOR40 MG PO (04:40)
--- NOTE | 2019-02-09 05:24 | NUR ---
ASSUMED PT CARE AT 1930. NURSING ASSESSMENT COMPLETED AT START OF SHIFT. PT DENIES CHEST PAIN THIS SHIFT. AFIB WITH HR 30'S-60'S THIS SHIFT, REMAINS ASYMPTOMATIC, DENIES SOA. HOURLY ROUNDING COMPLETED, CALL LIGHT WITHIN REACH.
[2019-02-09 08:00] VITALS: BP 131/74
--- NOTE | 2019-02-09 11:29 | NUR ---
Nutrition: pt with class III morbid obesity. Pt reports good appetite. Denied acute nutrition concners. Albumin WNL. Discussed some basic diet info, pt appears to have a good understanding. Declined further diet edu. Assessed at low nutrition risk.
[2019-02-09 12:44] VITALS: BP 121/76
[2019-02-09] MEDS ORDERED: DEMADEX20 MG PO (13:08)
[2019-02-09 13:09] LABS: CALCIUM 9.5 mg/dL (8.5-10.1); CREATININE 1.1 mg/dL (0.6-1.3); MAGNESIUM 1.8 mg/dL (1.8-2.4); POTASSIUM 3.1 mmol/L (3.5-5.1)
--- NOTE | 2019-02-14 13:17 | CON ---
[address] [address] CONSULTATION Name: TOBIASNEW Room: [address] M.R.#: [id number] Admission: 02/08/19 Attend Phys: Luiz Beard Discharge: 02/09/19 Date of : 42 Report #: [id number] THIS REPORT FOR: //name// CC: Andi Rodriguez DATE OF SERVICE: 02/08/2019 CHIEF COMPLAINT: Shortness of breath. HISTORY OF PRESENT ILLNESS: The patient is a 78-year-old man with a history of atrial fibrillation and coronary artery disease. He presented to the Emergency Room with increasing shortness of breath and weight gain. He had been taking Lasix 40 mg daily, recently titrated from our office visit most recently where I had increased it from every other day to daily dosing; however, since the last time I have seen him, he has gained approximately 10-15 pounds and has complaints of increasing bloating in his abdomen and weight gain in his lower extremities and shortness of breath. He does have remote history of coronary artery disease and prior PCI last year to his circumflex coronary artery. He denies chest pain or pressure. His ECG did not show any acute ST segment changes, but he was fairly bradycardic with heart rates in the 30s-40s and now upon my arrival, his heart rates are in the 60s-70s. He did receive apparently atropine in the Emergency Room. He denies orthopnea or PND, syncope or presyncope. He is anticoagulated. He denies visual changes, slurred speech and numbness or weakness in his arms. He denies GI or bleeding. PAST MEDICAL HISTORY: He has a history of coronary artery disease, PCI last year to his circumflex coronary artery and residual moderate disease in his LAD in the setting of grossly normal LV systolic function, atrial fibrillation, hypertension, morbid obesity, COPD, hyperlipidemia. PAST SURGICAL HISTORY: No recent surgeries. HOME MEDICATIONS: Flomax 0.4 mg daily, finasteride 5 mg daily, Lasix 40 mg daily, potassium 20 mEq daily, Losartan and HCTZ 100/25 mg daily and Eliquis 5 mg p.o. b.i.d. ALLERGIES: CECLOR, DICLOFENAC, RAMIPRIL, POVIDONE-IODINE. REVIEW OF SYSTEMS: CONSTITUTIONAL: No fevers or chills. MUSCULOSKELETAL: [place] [address] CONSULTATION Name: NEW TOBIAS Room: [address] IN [facility]#: [id number] Admission: 02/08/19 Attend Phys: Luiz Beard Discharge: 02/09/19 Date of : 42 Report #: [id number] GASTROINTESTINAL: No nausea or vomiting. GENITOURINARY: No dysuria or hematuria. CARDIOVASCULAR: No chest pain, no orthopnea, no PND. Positive dyspnea with exertion. NEUROLOGIC: Denies numbness, weakness or visual changes. PHYSICAL EXAMINATION: VITAL SIGNS: On presentation, blood pressure 149/90 with pulse of 50, temperature is 36.7. GENERAL: This is a pleasant, moderately obese elderly male. He is alert, oriented, in no apparent distress. HEENT: Eyes are intact. No facial asymmetry. NECK: Supple. No jugular venous distention. CARDIOVASCULAR: Irregular. I cannot hear a murmur. LUNGS: Clear to auscultation. EXTREMITIES: There is 1-2+ pretibial edema bilaterally. This is focal and symmetric. There is no bruising. ECG shows an atrial fibrillation with heart rate in the 40s-50s. On presentation, his ECG was 32 beats per minute, poor R-wave progression, no ST segment abnormalities. IMPRESSION: 1. Acute diastolic congestive heart failure. He has a history of normal left ventricular systolic function. This is probably due to either a combination of right-sided heart failure. He does have an underlying history of chronic obstructive pulmonary disease as well as atrial fibrillation. 2. Coronary artery disease. He reports no angina. We will continue with medical therapy. 3. Atrial fibrillation. He has evidence of sick sinus syndrome. We will monitor his heart rates on telemetry. 4. Hypertension, stable. PLAN: At this point in time, we will plan on diuresis and telemetry monitoring. Likely on discharge, he will be discharged on torsemide in lieu of furosemide. <ELECTRONICALLY SIGNED> By: Nolan Flores MD, FACC 02/14/19 1317 [id number] Flores MD, FACC /nt
== END 2019-02-09 13:56 | disposition home or self-care (01) | DRG 280 ==
LOC: M.ERS 11:08 → M.TBA-ER 12:30 → M.2W 12:30
PROVIDERS: Nurse Practitioner Psychiatric/Mental Health; ADMIT Internal Medicine
DX: I21.A1 Myocardial infarction type 2 (principal); I50.21 Acute systolic (congestive) heart failure; Z68.41 Body mass index [BMI] 40.0-44.9, adult; I11.0 Hypertensive heart disease with heart failure; R00.1 Bradycardia, unspecified; E66.01 Morbid (severe) obesity due to excess calories; J44.9 Chronic obstructive pulmonary disease, unspecified; I48.2 Chronic atrial fibrillation; I25.10 Atherosclerotic heart disease of native coronary artery without angina pectoris; M19.90 Unspecified osteoarthritis, unspecified site; E78.5 Hyperlipidemia, unspecified; Z95.5 Presence of coronary angioplasty implant and graft; Z88.6 Allergy status to analgesic agent; Z91.041 Radiographic dye allergy status; Z88.1 Allergy status to other antibiotic agents; Z88.8 Allergy status to other drugs, medicaments and biological substances; Z87.891 Personal history of nicotine dependence

== ENCOUNTER → 2019-10-22 | Outpatient (CLI) | payer OTHER ==
[~2019-10-22] MED LIST changes: +DEMADEX20 MG PO; +HOME RESPIRATORY TX INH; +SINGULAIR 10 MG10 M1 PO; +ZOCOR40 MG PO
== END ==
LOC: M.LAB 01:44
DX: E87.6 Hypokalemia (principal)

== ENCOUNTER 2020-06-09 14:09 | Emergency (ER) | payer OTHER ==
[~2020-06-09] VITALS: Ht 177.8 cm; Wt 122.2 kg
[2020-06-09] MEDS ORDERED: OMEPRAZOLE 20 M20 M1 PO (14:22)
[2020-06-09] MEDS ORDERED: NORCO 5-325 TA1 EAC2 PO (17:42)
[2020-06-09 17:57] VITALS: BP 139/76
== END 2020-06-09 17:57 | disposition home or self-care (01) ==
LOC: M.ERS 14:09
DX: S51.812A Laceration without foreign body of left forearm, initial encounter (principal); S16.1XXA Strain of muscle, fascia and tendon at neck level, initial encounter; S80.02XA Contusion of left knee, initial encounter; S40.212A Abrasion of left shoulder, initial encounter; S70.02XA Contusion of left hip, initial encounter; S50.02XA Contusion of left elbow, initial encounter; J44.9 Chronic obstructive pulmonary disease, unspecified; I50.9 Heart failure, unspecified; I11.0 Hypertensive heart disease with heart failure; I48.91 Unspecified atrial fibrillation; M19.90 Unspecified osteoarthritis, unspecified site; E78.5 Hyperlipidemia, unspecified; Z79.899 Other long term (current) drug therapy; Z88.1 Allergy status to other antibiotic agents; Z88.8 Allergy status to other drugs, medicaments and biological substances; W18.39XA Other fall on same level, initial encounter; Y93.89 Activity, other specified; Y92.89 Other specified places as the place of occurrence of the external cause; Y99.8 Other external cause status

== ENCOUNTER → 2020-07-15 | Outpatient (CLI) | payer OTHER ==
[~2020-07-15] MED LIST changes: +NORCO 5-325 TA1 EAC2 PO; +OMEPRAZOLE 20 M20 M1 PO
== END ==
LOC: M.NUC 07-11 10:15
PROVIDERS: ATTEND Orthopaedic Surgery
DX: M17.12 Unilateral primary osteoarthritis, left knee (principal)

== ENCOUNTER 2020-11-18 12:03 | Emergency (ER) | payer OTHER ==
[~2020-11-18] VITALS: Ht 175.3 cm; Wt 123.8 kg
[2020-11-18] MEDS ORDERED: ASA81BEC PO (12:52)
[2020-11-18] MEDS ORDERED: OMEPRAZOLE 20 M20 M1 PO (12:53)
[2020-11-18] MEDS ORDERED: TURMERIC500 M2 PO (12:53)
[2020-11-18] MEDS ORDERED: BREO ELLIPTA 21 EACH INH (12:53)
[2020-11-18] MEDS ORDERED: FISH OIL 1,0001 EAC9 PO (12:53)
[2020-11-18] MEDS ORDERED: NORCO5 PO (13:37)
[2020-11-18 14:39] VITALS: BP 150/93
== END 2020-11-18 14:40 | disposition home or self-care (01) ==
LOC: M.ERS 12:03
DX: G89.29 Other chronic pain (principal); M25.552 Pain in left hip; I48.91 Unspecified atrial fibrillation; I11.0 Hypertensive heart disease with heart failure; I50.9 Heart failure, unspecified; J44.9 Chronic obstructive pulmonary disease, unspecified; M19.90 Unspecified osteoarthritis, unspecified site; E78.5 Hyperlipidemia, unspecified; Z88.1 Allergy status to other antibiotic agents; Z96.653 Presence of artificial knee joint, bilateral; Z88.8 Allergy status to other drugs, medicaments and biological substances

== ENCOUNTER → 2021-04-06 | Outpatient (CLI) | payer OTHER ==
[~2021-04-06] MED LIST changes: +ASA81BEC PO; +BREO ELLIPTA 21 EACH INH; +FISH OIL 1,0001 EAC9 PO; +NORCO5 PO; +TURMERIC500 M2 PO
[2021-04-06 11:10] LABS: CALCIUM 8.9 mg/dL (8.5-10.1); CREATININE 1.3 mg/dL (0.6-1.3); POTASSIUM 3.2 mmol/L (3.5-5.1)
[2021-04-07 09:34] LABS: CHOLESTEROL 133 mg/dL (<200); HDL CHOLESTEROL 39 mg/dL (>40); LDL CHOLESTEROL 78 mg/dL (<100); TC:HDL 3.4 Ratio (Not establshd); TRIGLYCERIDE 84 mg/dL (<150); VLDL 17 mg/dL (<40)
[2021-04-07 09:35] LABS: SERUM ASSESSMENT Clear
== END ==
LOC: M.LAB 10:30
PROVIDERS: ATTEND Internal Medicine Cardiovascular Disease
DX: I25.10 Atherosclerotic heart disease of native coronary artery without angina pectoris (principal); E78.2 Mixed hyperlipidemia

== ENCOUNTER → 2021-04-16 | Outpatient (CLI) | payer OTHER ==
[2021-04-16 08:42] LABS: CALCIUM 9.5 mg/dL (8.5-10.1); CREATININE 1.4 mg/dL (0.6-1.3); POTASSIUM 3.4 mmol/L (3.5-5.1)
== END ==
LOC: M.LAB 08:14
PROVIDERS: ATTEND Nurse Practitioner
DX: I50.32 Chronic diastolic (congestive) heart failure (principal); I48.20 Chronic atrial fibrillation, unspecified

== ENCOUNTER → 2021-05-05 | Outpatient (CLI) | payer OTHER ==
--- NOTE | 2021-05-05 15:07 | 2DMMODE ---
[place] [address] 2 D/M-MODE ECHOCARDIOGRAM Name: NEW TOBIAS Room: [facility]#: [id number] Admission: 05/05/21 Attend Phys: Joan Gregorio RN Discharge: Date of : 42 Date of Service: 05/05/21 1506 Report #: [id number] THIS REPORT FOR: cc: Andi Reddy John E. DO Liston, Michael J. MD [facility] ~ APPROVED REPORT Study performed: 05/05/2021 09:12:50 EXAM: Comprehensive 2D, Doppler, and color-flow Echocardiogram Patient Location: Out-Patient BSA: 2.33 HR: 70 bpm BP: 110/72 mmHg Other Information Study Quality: Good Indications Congestive Heart Failure 2D Dimensions IVSd: 17.60 (7-11mm) LVOT Diam: 20.64 (18-24mm) LVDd: 53.97 mm PWd: 14.13 (7-11mm) Ascending Ao: 36.77 (22-36mm) LVDs: 31.79 (25-40mm) Aortic Root: 33.31 mm Volumes Left Atrial Volume (Systole) LA ESV Index: 33.70 mL/m2 Aortic Valve AoV Peak Piyush.: 1.38 m/s AO Peak Gr.: 7.56 mmHg LVOT Max P.69 mmHg AO Mean Gr.: 4.09 mmHg LVOT Mean P.45 mmHg LVOT Max V: 1.08 m/s AO V2 VTI: 27.21 cm LVOT Mean V: 0.73 m/s PRASAD (VTI): 2.69 cm2 LVOT V1 VTI: 21.87 cm AI [place]: 2.32 m/s2 AI PHT: 504.41 [place] [address] 2 D/M-MODE ECHOCARDIOGRAM Name: NEW TOBIAS Room: [facility]#: [id number] Admission: 05/05/21 Attend Phys: Joan Gregorio RN Discharge: Date of : 42 Date of Service: 05/05/21 1506 Report #: [id number] Mitral Valve E/A Ratio: 3.40 MV Decel. Time: 219.63 ms MV E Max Piyush.: 0.88 m/s MV PHT: 63.69 ms MVA (PHT): 3.45 cm2 TDI E/Lateral E': 8.00 E/Medial E': 7.33 Medial E' Piyush.: 0.12 m/s Lateral E' Piyush.: 0.11 m/s Pulmonary Valve PV Peak Piyush.: 0.81 m/s PV Peak Gr.: 2.60 mmHg Tricuspid Valve RAP Estimate: 5.00 mmHg TR Peak Gr.: 26.86 mmHg RVSP: 31.86 mmHg PA Pressure: 31.86 mmHg Left Ventricle The left ventricle is normal size. There is normal LV segmental wall motion. Mild concentric left ventricular hypertrophy. Left ventricular systolic function is normal. LVEF is 65-70%. This study is not technically sufficient to allow evaluation of the LV diastolic function due to atrial fibrillation. Right Ventricle The right ventricle is normal size. The right ventricular systolic function is normal. Atria Left atrium is mildly dilated. Right atrium is mildly dilated. Aortic Valve The aortic valve is normal in structure. Mild aortic regurgitation. There is no aortic valvular stenosis. Mitral Valve The mitral valve is normal in structure. Mild mitral regurgitation. No evidence of mitral valve stenosis. Tricuspid Valve The tricuspid valve is normal in structure. Mild tricuspid regurgitation. The RVSP is 30-[place] [address] 2 D/M-MODE ECHOCARDIOGRAM Name: NEW TOBIAS Room: [facility]#: [id number] Admission: 05/05/21 Attend Phys: Joan Gregorio RN Discharge: Date of : 42 Date of Service: 05/05/21 1506 Report #: [id number] Pulmonic Valve The pulmonary valve is normal in structure. There is no pulmonic valvular regurgitation. Great Vessels The aortic root is normal in size. IVC is normal in size and collapses >50% with inspiration. Pericardium There is no pericardial effusion. <Conclusion> The left ventricle is normal size. Mild concentric left ventricular hypertrophy. Left ventricular systolic function is normal. LVEF is 65-70%. This study is not technically sufficient to allow evaluation of the LV diastolic function due to atrial fibrillation. Left atrium is mildly dilated. Right atrium is mildly dilated. Mild aortic regurgitation. Mild mitral regurgitation. Mild tricuspid regurgitation. The RVSP is 30-35 mmHg. IVC is normal in size and collapses >50% with inspiration. <ELECTRONICALLY SIGNED> By: Alonos Starr MD, FACC 05/05/21 1506 1506 1506 Alonso Starr MD, FACC /INF
== END ==
LOC: M.CRD 09:00
PROVIDERS: ATTEND Registered Nurse
DX: I08.3 Combined rheumatic disorders of mitral, aortic and tricuspid valves (principal); I50.32 Chronic diastolic (congestive) heart failure; J44.9 Chronic obstructive pulmonary disease, unspecified; R05 Cough